=== PATIENT | male | born 1995 | race Hispanic/Latino ===

== ENCOUNTER 2020-03-29 18:45 | Inpatient (IN) | payer OTHER, SELFPAY ==
[2020-03-29 19:19] LABS: Hemoglobin 14.1 g/dL (14.0-18.0); Mean Corpuscular HGB CONC 34.7 g/dL (32.0-36.0); Mean Corpuscular Hemoglobin 35.8 pg (27.0-31.0); Mean Platelet Volume 6.9 fL (7.4-10.4); Platelet Count 220 thou/uL (130-400); RBC Distribution Width 10.6 % (11.5-14.5); Red Blood Cell (RBC) Count 3.96 mill/uL (4.70-6.10); White Blood Cell (WBC) Count 20.8 thou/uL (4.8-10.8)
[2020-03-29] MEDS ORDERED: Ibuprofen 800 MG TAB ONE (19:29)
[2020-03-29 19:32] LABS: ALT (SGPT) 13 U/L (8-55); AST (SGOT) 19 U/L (5-34); Alkaline Phosphatase 50 U/L (40-110); Anion Gap 14 mmol/L (10-20); BUN (Urea Nitrogen) 12 mg/dL (8.9-20.6); Bilirubin, Total 0.9 mg/dL (0.2-1.2); CK (CPK) 119 U/L (30-200); Calc. Creatinine Clearance 0 mL/min (70-130); Calcium 8.4 mg/dL (7.8-10.44); Carbon Dioxide 21 mmol/L (22-29); Chloride 100 mmol/L (98-107); Estimated GFR-MDRD 88; Globulin 3.1 g/dL (2.4-3.5); Glucose 154 mg/dL (70-105); Lipase 7 U/L (8-78); Potassium 3.3 mmol/L (3.5-5.1); Protein, Total 7.1 g/dL (6.0-8.3); Sodium 132 mmol/L (136-145)
[2020-03-29 19:37] LABS: Band 12 % (5-11); Lymphocytes 3 % (21-51); MDiff Complete? YES; Metamyelocyte 1 % (0-0); Monocytes 7 % (0-10); Neutrophil 77 % (42-75); Platelet Morphology Comment Appears Adequate; RBC Morphology Normal
--- NOTE | 2020-03-29 20:21 | RAD ---
RADIOGRAPH CHEST 1 VIEW: DATE: 03-29-2020 HISTORY: 24-year-old male with fever. FINDINGS: There are no air space densities, pulmonary edema, pneumothorax, or cardiomegaly. The lateral costop hrenic angles are sharp. IMPRESSION: No acute cardiopulmonary findings. andrea POS: MARY
[2020-03-29 20:55] LABS: Bacteria/HPF None Seen HPF (None Seen); Bilirubin Negative (Negative); Blood, Urine Negative (Negative); Clarity Clear (Clear); Glucose, Urine (Dipstick) Normal (Negative); Leukocyte Negative Leu/uL (Negative); Mucous/LPF Rare LPF (<2+); Nitrite Negative (Negative); Protein, Urine (Dipstick) 30 mg/dL (Neg-Trace); RBC/HPF 0-3 HPF (0-3); Squamous Epithelial None Seen HPF (0-3); Urobilinogen Normal mg/dL (Less than 2); WBC/HPF 0-3 HPF (0-3)
--- NOTE | 2020-03-29 20:57 | CT ---
CT PULMONARY ANGIOGRAM WITH IV CONTRAST AND 3D POST PROCESSING: History: Fever, elevated D-Dimer. FINDINGS: No filling defects are seen in the pulmonary artery vascular to suggest pulmonary embolism. The thora cic aorta is well opacified without aneurysm or dissection. No pleural or cardio effusions are seen. No pneumothoraces, lobar consolidation or lung nodules/masses are identified. Bony structures are unr emarkable. Upper abdominal tomograms demonstrate changes of fatty infiltration of the liver. IMPRESSION: No CT evidence of pulmonary embolism. POS: CRISSH
[2020-03-29] MEDS ORDERED: Vancomycin 1 GM/200 ML BAG ONE (21:01)
[2020-03-29] MEDS ORDERED: Cefepime 2 GM VIAL ONE (21:01)
[2020-03-29 21:02] LABS: Amphetamine Not Detected (NotDetected); Barbiturates Screen Not Detected (NotDetected); Benzodiazepine Screen Not Detected (NotDetected); Cocaine Metabolite Screen Detected (NotDetected); Medtox Control Line Valid? VALID (VALID); Medtox Reader # READER 4; Methadone Not Detected (NotDetected); Methamphetamine Not Detected (NotDetected); Opiate Screen Not Detected (NotDetected); Oxycodone Screen Not Detected (NotDetected); Phencyclidine (PCP) Not Detected (NotDetected); THC/Cannabinoid Screen Not Detected (NotDetected); Tricyclic Screen Not Detected (NotDetected)
[2020-03-29] MEDS ORDERED: Promethazine HCl 12.5 MG in Sodium Chloride 0.9% 50 ML IVPB PRN (21:42)
[2020-03-29] MEDS ORDERED: Ondansetron PF 4 MG/2 ML Vial IVP PRN (21:42)
[2020-03-29] MEDS ORDERED: cloNIDine 0.1 MG TAB PO PRN (21:42)
[2020-03-29] MEDS ORDERED: Labetalol HCl 100 MG/20 ML VIAL SLOW IVP PRN (21:42)
[2020-03-29] MEDS ORDERED: Guaifenesin DM 100-10/5 ML UDCUP PO PRN (21:43)
[2020-03-29] MEDS ORDERED: Senokot S 8.6-50 MG TAB PO PRN (21:43)
--- NOTE | 2020-03-29 21:45 | PDOC.HHP ---
Hospitalist HPI - History of Present Illness Fever, tremors History of Present Illness: Patient is a 24 year old male with no PMH who presents to ED for fever and tremors which began today, patient reports at time of interview that he is back to normal by now, denies chest pain/shortness of breath/nausea/vomiting/diarrhea /abdominal pain. In ED, WBC 20.8, EKG sinus tachycardia in 120s, tni 0.014, BMP w/ Na 132, K 3.3, CO2 21, lactic acid 3.3. vitals significant for temperature max of 102.8, tachycardia 120s, given tylenol with improvement, given empiric abx and 3L IVF w/ significant improvement of symptoms, admtited for further workup and covid rule out.cultures ordered and drawn in ED. ED Course: VITAL SIGNS Sun March 29, 2020 22:11 JARED Sanchez, [facility] BP: 135/69 MAP: 91 Pulse: 101 Resp: 26 Temp: 98.8 (Oral) Pain: 0 O2 sat: 96 on (Room Air) Time: 03/29/2020 22:11. Hospitalist ROS - Review of Systems Constitutional: reports: fever, chills, sweats, weakness Eyes: denies: pain, vision change ENT: denies: ear pain, ear discharge, mouth swelling Respiratory: denies: cough, dry, shortness of breath Cardiovascular: denies: chest pain, palpitations Gastrointestinal: denies: nausea, vomiting, abdominal pain, diarrhea Genitourinary: denies: dysuria, frequency Musculoskeletal: denies: neck pain, shoulder pain, arm pain, back pain Skin: denies: rash, lesions, katie Neurological: reports: other (tremors). denies: weakness, numbness, incoordination All other systems reviewed; all pertinent +/- noted in HPI/Subj Hospitalist History - Past Medical History Other Medical History: reviewed no significant medical history - Past Surgical History Other Surgical History: reviewed no significant surgical history - Family History Other Family History: reviewed no significant family history - Social History Smoking Status: Current every day smoker Other Social History: positive test for cocaine in ED, patient denies this and other drug use - Exam General Appearance: NAD, awake alert Eye: PERRL, anicteric sclera ENT: normocephalic atraumatic, no oropharyngeal lesions, moist mucosa Neck: supple, symmetric, no JVD, no thyromegaly, no lymphadenopathy, no carotid bruit Heart: RRR, no murmur, no gallops, no rubs, normal peripheral pulses Respiratory: CTAB, no wheezes, no rales, no ronchi, normal chest expansion, no tachypnea, normal percussion Gastrointestinal: soft, non-tender, non-distended, normal bowel sounds, no palpable masses, no hepatomegaly, no splenomegaly, no bruit Extremities: no cyanosis, no clubbing, no edema Skin: normal turgor, no lesions, no rashes Neurological: cranial nerve grossly intact, normal sensation to touch, no weakness, no focal deficits, no new deficit Musculoskeletal: normal tone, normal strength, no muscle wasting Psychiatric: normal affect, normal behavior, A&O x 3 Hospitalist Results - Labs Result Diagrams: 03/29/20 19:03 03/29/20 19:03 Lab results: WBC 20.8 thou/uL (4.8-10.8) H 03/29/20 19:03 Hgb 14.1 g/dL (14.0-18.0) 03/29/20 19:03 Hct 40.8 % (42.0-52.0) L 03/29/20 19:03 MCV 103.0 fL (78.0-98.0) H 03/29/20 19:03 Plt Count 220 thou/uL (130-400) 03/29/20 19:03 Band Neuts % (Manual) 12 % (5-11) H 03/29/20 19:03 Sodium 132 mmol/L (136-145) L 03/29/20 19:03 Potassium 3.3 mmol/L (3.5-5.1) L 03/29/20 19:03 Chloride 100 mmol/L (98-107) 03/29/20 19:03 Carbon Dioxide 21 mmol/L (22-29) L 03/29/20 19:03 BUN 12 mg/dL (8.9-20.6) 03/29/20 19:03 Creatinine 1.02 mg/dL (0.7-1.3) 03/29/20 19:03 Glucose 154 mg/dL (70-105) H 03/29/20 19:03 Lactic Acid 3.3 mmol/L (0.5-2.2) H 03/29/20 19:03 Calcium 8.4 mg/dL (7.8-10.44) 03/29/20 19:03 Total Bilirubin 0.9 mg/dL (0.2-1.2) 03/29/20 19:03 AST 19 U/L (5-34) 03/29/20 19:03 ALT 13 U/L (8-55) 03/29/20 19:03 Alkaline Phosphatase 50 U/L (40-110) 03/29/20 19:03 Creatine Kinase 119 U/L (30-200) 03/29/20 19:03 Troponin I 0.014 ng/mL (< 0.028) 03/29/20 19:03 B-Natriuretic Peptide 25.4 pg/mL (0-100) 03/29/20 19:03 Serum Total Protein 7.1 g/dL (6.0-8.3) 03/29/20 19:03 Albumin 4.0 g/dL (3.5-5.0) 03/29/20 19:03 Lipase 7 U/L (8-78) L 03/29/20 19:03 Urine Ketones 20 mg/dL (Negative) A 03/29/20 20:26 Urine Blood Negative (Negative) 03/29/20 20: Urine Nitrite Negative (Negative) 03/29/20 20:26 Ur Leukocyte Esterase Negative Laura/uL (Negative) 03/29/20 20:26 Urine RBC 0-3 HPF (0-3) 03/29/20 20:26 Urine WBC 0-3 HPF (0-3) 03/29/20 20:26 Ur Squamous Epith Cells None Seen HPF (0-3) 03/29/20 20:26 Urine Bacteria None Seen HPF (None Seen) 03/29/20 20:26 Additional comment: flu swab negative XR Chest 1 View Portable Observe DT: Sun March 29, 2020 18:59 CXRP RADIOGRAPH CHEST 1 VIEW: DATE: 03-29-2020 HISTORY: 24-year-old male with fever. FINDINGS: There are no air space densities, pulmonary edema, pneumothorax, or cardiomegaly. The lateral costop hrenic angles are sharp. IMPRESSION: No acute cardiopulmonary findings. - EKG Interpretation EKG: sinus tachycardia [address] changes Hospitalist H&P A/P - Plan Plan: 24 year old male with no PMH admitted for: # fever, leukocytosis, sepsis - admit to telemetry for observation - covid test and precautions - d dimer high, CT chest with no evidence of PE - repeat lactate 2H - continue IVF - empiric azithromycin/ceftriaxone # cocaine abuse - patient UDS positive, denies cocaine and other drug use when confronted. counselling provided anyway. - check CK - continue IVF - trend troponin # hyponatremia - continue IVF and recheck BMP in AM # hypokalemia - replete as needed PRN
[2020-03-29 22:27] LABS: Lactic Acid 1.7 mmol/L (0.5-2.2)
[2020-03-29] MEDS ORDERED: Potassium Chloride 20 MEQ/100 ML PREMIX BAG IVPB SCH (23:15)
[2020-03-29] MEDS ORDERED: Azithromycin 250 MG TAB PO SCH (23:30)
[2020-03-30] MEDS: cefTRIAXone\\ROCEPHIN 1 GM in Sodium Chloride 0.9% 100 ML IVPB SCH ×2 (00:06→20:49)
[2020-03-30] MEDS: Sodium Chloride 0.9% 1,000 ML IV SCH ×3 (00:06→17:15)
[2020-03-30 01:33] VITALS: BMI 24.2
[2020-03-30 06:08] LABS: Band 9 % (5-11); Hemoglobin 14.3 g/dL (14.0-18.0); Lymphocytes 1 % (21-51); MDiff Complete? YES; Macrocytosis SLIGHT = 6-15 cells (100X) (0-5/hpf); Mean Corpuscular HGB CONC 34.8 g/dL (32.0-36.0); Mean Corpuscular Hemoglobin 36.4 pg (27.0-31.0); Monocytes 4 % (0-10); Neutrophil 86 % (42-75); Platelet Count 198 thou/uL (130-400); Platelet Morphology Comment Appears Adequate; RBC Distribution Width 10.7 % (11.5-14.5); Red Blood Cell (RBC) Count 3.93 mill/uL (4.70-6.10); White Blood Cell (WBC) Count 19.2 thou/uL (4.8-10.8)
[2020-03-30 06:28] LABS: Anion Gap 10 mmol/L (10-20); BUN (Urea Nitrogen) 10 mg/dL (8.9-20.6); Calc. Creatinine Clearance 137 mL/min (70-130); Carbon Dioxide 24 mmol/L (22-29); Chloride 107 mmol/L (98-107); Estimated GFR-MDRD Greater than 90; Glucose 113 mg/dL (70-105); Potassium 3.6 mmol/L (3.5-5.1); Sodium 137 mmol/L (136-145)
[2020-03-30] MEDS: Enoxaparin Sodium 40 MG/0.4 ML SYRINGE SC SCH (08:02)
[2020-03-30] MEDS: Azithromycin 250 MG TAB PO SCH (08:02)
[2020-03-30 10:22] LABS: SARS-CoV-2 MS2 Positive; SARS-CoV-2 N Gene Negative; SARS-CoV-2 S Gene Negative; SARS-CoV-2 orf1ab Negative
--- NOTE | 2020-03-30 13:52 | PDOC.HOSPP ---
- Subjective Encounter Date: 03/30/20 Encounter Time: 10:40 Subjective: pt citizen of [place] speaking only. covid negative, explained to him. he seems to understand. wbcs downward trend. - Objective Vital Signs & Weight: Vital Signs (12 hours) Temp Pulse Resp BP Pulse Ox 03/30/20 11:54 99.5 F 80 20 118/76 96 03/30/20 08:18 98.9 F 88 16 122/84 96 03/30/20 03:25 98.1 F 94 18 109/62 98 Weight Weight 154 lb 5.177 oz I&O: 03/29/20 03/30/20 03/31/20 06:59 06:59 06:59 Intake Total 1680 Output Total 500 Balance 1180 Result Diagrams: 03/30/20 05:26 03/30/20 05:26 Hospitalist ROS - Medication Medications: Active Medications Generic Name Dose Route Start Last Admin Trade Name Freq PRN Reason Stop Dose Admin Azithromycin 250 mg 03/30/20 09:00 03/30/20 08:02 Zithromax PO 04/02/20 09:01 250 mg DAILY NADIA Administration Enoxaparin Sodium 40 mg 03/30/20 09:00 03/30/20 08:02 Lovenox SC 40 mg 0900 NADIA Administration Ceftriaxone Sodium 1 gm/ 100 mls @ 200 mls/hr 03/29/20 21:45 03/30/20 00:06 Sodium Chloride IVPB 100 mls Q24HR NADIA Administration Sodium Chloride 1,000 mls @ 125 mls/hr 03/29/20 21:45 03/30/20 08:02 Normal Saline 0.9% IV 1,000 mls .Q8H NADIA Administration Pantoprazole Sodium 40 mg 03/30/20 09:00 03/30/20 08:02 Protonix PO 40 mg DAILY NADIA Administration Sodium Chloride 10 ml 03/30/20 09:00 03/30/20 08:02 Flush - Normal Saline IVF 10 ml Q12HR NADIA Administration - Exam General Appearance: NAD, awake alert Eye: PERRL ENT: normocephalic atraumatic Neck: supple Heart: RRR, normal peripheral pulses Respiratory: CTAB, normal chest expansion Gastrointestinal: soft, normal bowel sounds Neurological: no focal deficits Hosp A/P - Plan 24 year old male with no PMH admitted for: # fever, leukocytosis, sepsis - d dimer high, CT chest with no evidence of PE - continue IVF - empiric azithromycin/ceftriaxone - flu and strep neg. - bl elisa neg so far. # cocaine abuse - patient UDS positive, denies cocaine and other drug use when confronted. counselling provided anyway. - check CK - continue IVF - trend troponin # hyponatremia - resolved # hypokalemia - replete as needed PRN - covid neg. if wbcs trended further down, plan to dc in am, if elisa neg.
[2020-03-30] MEDS: Acetaminophen 325 MG TAB PO PRN (20:45)
[2020-03-31] MEDS: Sodium Chloride 0.9% 1,000 ML IV SCH ×3 (03:30→20:20)
[2020-03-31 06:48] LABS: Band 4 % (5-11); Lymphocytes 11 % (21-51); MDiff Complete? YES; Mean Corpuscular HGB CONC 34.4 g/dL (32.0-36.0); Mean Corpuscular Hemoglobin 36.1 pg (27.0-31.0); Mean Platelet Volume 7.3 fL (7.4-10.4); Monocytes 9 % (0-10); Neutrophil 76 % (42-75); Platelet Count 172 thou/uL (130-400); Platelet Morphology Comment Appears Adequate; RBC Distribution Width 10.9 % (11.5-14.5); Red Blood Cell (RBC) Count 3.88 mill/uL (4.70-6.10); White Blood Cell (WBC) Count 16.4 thou/uL (4.8-10.8)
[2020-03-31 06:51] LABS: Anion Gap 11 mmol/L (10-20); BUN (Urea Nitrogen) 6 mg/dL (8.9-20.6); Calc. Creatinine Clearance 158 mL/min (70-130); Calcium 8.1 mg/dL (7.8-10.44); Carbon Dioxide 23 mmol/L (22-29); Chloride 105 mmol/L (98-107); Estimated GFR-MDRD Greater than 90; Glucose 100 mg/dL (70-105); Potassium 3.4 mmol/L (3.5-5.1); Sodium 136 mmol/L (136-145)
[2020-03-31 06:56] LABS: Troponin I Less than 0.010 ng/mL (< 0.028)
--- NOTE | 2020-03-31 07:52 | ULT ---
Venous duplex sonogram right lower extremity HISTORY: Right leg pain and edema. FINDINGS: The right common femoral vein and greater saphenous junction were evaluated along with the femoral, deep femoral, popliteal, and posterior tibial veins. There is good color and spectral Doppler flow, compression, and augmentation. IMPRESSION : Normal exam.
[2020-03-31] MEDS: Acetaminophen 325 MG TAB PO PRN (08:41)
[2020-03-31] MEDS: Azithromycin 250 MG TAB PO SCH (08:41)
[2020-03-31] MEDS: Enoxaparin Sodium 40 MG/0.4 ML SYRINGE SC SCH (08:42)
--- NOTE | 2020-03-31 12:47 | PDOC.HOSPP ---
- Subjective Encounter Date: 03/31/20 Encounter Time: 10:50 Subjective: doing well. has right leg erythema, no trauma, stays he hit it some time in the past, no cough, afebrile, elisa pending. wbcs dnward trend. - Objective Vital Signs & Weight: Vital Signs (12 hours) Temp Pulse Resp BP Pulse Ox 03/31/20 10:56 97.7 F 72 16 119/62 96 03/31/20 07:11 97.5 F L 83 18 106/63 97 03/31/20 04:00 99.3 F 78 18 124/78 98 Weight Weight 154 lb 5.177 oz I&O: 03/30/20 03/31/20 04/01/20 06:59 06:59 06:59 Intake Total 1680 1979 Output Total 500 Balance 1180 1979 Result Diagrams: 03/31/20 06:12 03/31/20 06:12 Hospitalist ROS - Medication Medications: Active Medications Generic Name Dose Route Start Last Admin Trade Name Freq PRN Reason Stop Dose Admin Acetaminophen 650 mg 03/29/20 21:43 03/31/20 08:41 Tylenol PO 650 mg Q4H PRN Administration Headache/Fever/Mild Pain (1-3) Azithromycin 250 mg 03/30/20 09:00 03/31/20 08:41 Zithromax PO 04/02/20 09:01 250 mg DAILY NADIA Administration Enoxaparin Sodium 40 mg 03/30/20 09:00 03/31/20 08:42 Lovenox SC 40 mg 0900 NADIA Administration Ceftriaxone Sodium 1 gm/ 100 mls @ 200 mls/hr 03/29/20 21:45 03/30/20 20:49 Sodium Chloride IVPB 100 mls Q24HR NADIA Administration Sodium Chloride 1,000 mls @ 125 mls/hr 03/29/20 21:45 03/31/20 08:43 Normal Saline 0.9% IV 1,000 mls .Q8H NADIA Administration Pantoprazole Sodium 40 mg 03/30/20 09:00 03/31/20 08:42 Protonix PO 40 mg DAILY NADIA Administration Sodium Chloride 10 ml 03/30/20 09:00 03/31/20 08:42 Flush - Normal Saline IVF 10 ml Q12HR NADIA Administration - Exam ENT: normocephalic atraumatic Neck: supple Heart: RRR, no gallops Respiratory: CTAB, normal chest expansion Gastrointestinal: soft, normal bowel sounds Skin - other findings: r leg erythema - no skin abrasions Neurological: no focal deficits Hosp A/P - Plan 24 year old male with no PMH admitted for: # fever, leukocytosis, sepsis - d dimer high, CT chest with no evidence of PE - continue IVF - empiric azithromycin/ceftriaxone - flu and strep neg. - bl elisa neg so far. # cocaine abuse - patient UDS positive, denies cocaine and other drug use when confronted. counselling provided anyway. - check CK - continue IVF - trend troponin # hyponatremia - resolved # hypokalemia - replete as needed PRN - covid neg. E.leg cellulitis? - should resolve w.. IV abx - will monitor wbcs still high at 16K, but trending down -will give another day of IV abx as r.leg erythema as well. - if better by tomorrow, transition to po abx, and dc home.
[2020-03-31] MEDS: cefTRIAXone\\ROCEPHIN 1 GM in Sodium Chloride 0.9% 100 ML IVPB SCH (20:21)
[2020-03-31 20:45] VITALS: TEMP 98.1
[2020-04-01] MEDS: Sodium Chloride 0.9% 1,000 ML IV SCH (05:07)
[2020-04-01 05:43] LABS: #Basophils 0.1 thou/uL (0.0-0.2); #Eosinphils 0.1 thou/uL (0.0-0.7); #Lymphocytes 1.4 thou/uL (1.20-3.40); #Monocytes 0.9 thou/uL (0.11-0.59); #Neutrophils 8.5 thou/uL (1.40-6.50); %Basophils 0.5 % (0.0-1.0); %Eosinophils 0.6 % (0.0-10.0); %Lymphocytes 12.7 % (21.0-51.0); %Monocytes 8.2 % (0.0-10.0); Hemoglobin 13.4 g/dL (14.0-18.0); Mean Corpuscular HGB CONC 33.2 g/dL (32.0-36.0); Mean Platelet Volume 7.7 fL (7.4-10.4); Platelet Count 194 thou/uL (130-400); RBC Distribution Width 10.8 % (11.5-14.5); Red Blood Cell (RBC) Count 3.83 mill/uL (4.70-6.10); White Blood Cell (WBC) Count 10.9 thou/uL (4.8-10.8)
[2020-04-01 06:03] LABS: Anion Gap 10 mmol/L (10-20); BUN (Urea Nitrogen) 6 mg/dL (8.9-20.6); Calc. Creatinine Clearance 154 mL/min (70-130); Calcium 8.1 mg/dL (7.8-10.44); Carbon Dioxide 25 mmol/L (22-29); Chloride 106 mmol/L (98-107); Estimated GFR-MDRD Greater than 90; Glucose 90 mg/dL (70-105); Potassium 3.5 mmol/L (3.5-5.1); Sodium 137 mmol/L (136-145)
[2020-04-01 07:11] VITALS: BP 137/68
[2020-04-01] MEDS: Enoxaparin Sodium 40 MG/0.4 ML SYRINGE SC SCH (09:03)
[2020-04-01] MEDS: Azithromycin 250 MG TAB PO SCH (09:03)
--- NOTE | 2020-04-01 12:19 | ULT ---
ULTRASOUND WITH DOPPLER DUPLEX VENOUS LOWER EXTREMITY LEFT: HISTORY: 24-year-old male with left lower extremity edema and erythema. TECHNIQUE: Color flow Doppler, spectral waveform analysis of pulsed Doppler, and matthews-scale imaging with katey rodney and augmentation, were used to evaluate the left common femoral, femoral, popliteal, posterior t ibial, and superficial femoral, veins; and the proximal portions of the profunda femoral and greater saphenous, veins. FINDINGS: There is normal compressibility, demonstration of blood flow by color Doppler and pulsed Doppler, and response to augmentation, in all interrogated veins. IMPRESSION: Negative. No deep vein thrombosis in the left lower extremity. jn[] POS: JIN
--- NOTE | 2020-04-01 13:53 | ULT ---
EXAM: Right lower extremity venous Doppler HISTORY: Right lower leg erythema. COMPARISON: 03/31/2020 FINDINGS: Grayscale, color-flow, Doppler evaluation, spectral analysis of the right lower extremity venous stru ctures is performed with 2-D imaging. The right common femoral, superficial femoral, popliteal, posterior tibial, proximal greater saphenous and profunda femoral veins are imaged. There is normal luminal compressibility, flow, and augmentation in the visualized deep venous structu res of the right lower extremity. A nonspecific mildly prominent right inguinal lymph node is present measuring 11 mm in short axis dim ension. However, there is a normal appearing fatty hilum present. This is stable compared to prior exam. Mild subcutaneous edema is seen in the distal right lower extremity. IMPRESSION: 1. No evidence of a deep vein thrombosis in the visualized deep venous structures right lower extremi ty. 2 Mild subcutaneous edema. 3. Mildly prominent lymph node right inguinal region stable from prior study. However, normal appeari ng fatty hilum is present within this lymph node.
--- NOTE | 2020-04-02 08:11 | DIS ---
DATE OF ADMISSION: 03/29/2020 DATE OF DISCHARGE: 04/01/2020 DISCHARGE DIAGNOSES: 1. Hyponatremia. 2. Hypokalemia. 3. Right leg erythema/cellulitis. 4. History of cocaine abuse and positive currently. 5. Sepsis with fever and leukocytosis. 6. Community-acquired pneumonia. 7. Right leg cellulitis. DISCHARGE MEDICATION: Augmentin 875 twice a day for 7 days. PHYSICAL EXAMINATION: VITAL SIGNS: On the day of discharge, temperature 98.1, pulse 79, blood pressure 112/65, and saturating 99% on room air. GENERAL: The patient is alert and oriented. He is not having any acute distress. He is resting comfortably. Discharge plan explained, and he is comfortable, going home today. CARDIOVASCULAR: Regular rate and rhythm without murmurs, rubs, or gallops. LUNGS: Clear to auscultation bilaterally without wheezing, rales, or rhonchi. ABDOMEN: Soft, nontender, and nondistended. Good bowel sounds. EXTREMITIES: Without any pitting edema and rash. HOSPITAL COURSE: A 24-year-old male without significant past medical history, presented with fever and tremor and white count of 20,000, sinus tachycardia with electrolyte abnormalities including lactic acid of 3.3. Concerned for sepsis in addition to COVID rule out. He has ruled out for COVID and it is negative. Cultures did not grow any organisms. Over the time, he improved well. His UDS showed cocaine positive. He was treated with IV fluid. Had sodium and potassium a little down that was replaced. His WBC improved from 20 to 10.9 prior to discharge and his electrolyte panel is also better. Potassium at 3.5, creatinine 0.72. The patient also had the right leg cellulitis. He received ceftriaxone and Zithromax. The patient did not have any major issues. His ultrasound is negative for DVT on his leg. The patient is clinically stable to be discharged home. DISCHARGE INSTRUCTIONS: Activity as tolerated. Regular diet. Follow up with primary care physician in 1 week. TIME SPENT: Discharge time over 30 minutes. Job ID: [id number] MTDD
--- NOTE | 2020-04-09 16:49 | EKG ---
Test Reason : EMERGENCY Blood Pressure : / mmHG Vent. Rate : 122 BPM Atrial Rate : 122 BPM P-R Int : 120 ms QRS Dur : 090 ms QT Int : 306 ms P-R-T Axes : 066 057 018 degrees QTc Int : 436 ms Sinus tachycardia Otherwise normal ECG Confirmed by AMAN SANCHEZ, FRANCISCO ([id number]), order editor JAELYN FONTANA ([id number]) on 04/09/2020 4:49:24 PM Referred By: Confirmed By:FRANCISCO NEWTON MD
== END 2020-04-01 18:35 | disposition home or self-care (01) | DRG 871 ==
LOC: ERS 18:45 → T4-B 21:23 → OBSVTOIN 21:23
PROVIDERS: ADMIT Internal Medicine; ATTEND Internal Medicine
PROC: 8E0ZXY6 Isolation (ICD-10-PCS; principal; 2020-03-29)
DX: A41.9 Sepsis, unspecified organism (principal); J18.9 Pneumonia, unspecified organism; E87.1 Hypo-osmolality and hyponatremia; L03.115 Cellulitis of right lower limb; F14.10 Cocaine abuse, uncomplicated; E87.6 Hypokalemia; Z20.828 Contact with and (suspected) exposure to other viral communicable diseases; F17.210 Nicotine dependence, cigarettes, uncomplicated
CPT/HCPCS: 36415; 71045; 71275; 80048; 80053; 80306; 81003; 81015; 82550; 83605; 83690; 83880; 84484; 85025; 85379; 87040; 87081; 87430; 87635; 87804; 93005; 96361; 96365; J0692; J0696; J1650; J3370; J3480; J3490; U0003